=== PATIENT | female | born 2000 | race Caucasian/White ===

== ENCOUNTER → 2020-03-06 | Outpatient (CLI) | payer SELFPAY ==
--- NOTE | 2020-03-07 07:42 | EKG REPORT ---
SEVERITY:- ABNORMAL ECG - SINUS RHYTHM BIATRIAL ABNORMALITIES BORDERLINE T ABNORMALITIES, INFERIOR LEADS : Confirmed by: Lyn Bai MD 07-Mar-2020 07:41:30
== END ==
LOC: OD 11:52
PROVIDERS: ATTEND Nurse Practitioner Pediatrics
DX: R42 Dizziness and giddiness (principal); R00.0 Tachycardia, unspecified
CPT/HCPCS: 93005; 93010